=== PATIENT | female | born 1985 | race African-American/Black ===

== ENCOUNTER 2018-03-19 07:43 | Emergency (ER) | payer MEDICAID, OTHER ==
[~2018-03-19] VITALS: Ht 172.7 cm; Wt 74.8 kg
[2018-03-19 08:15] VITALS: BP 131/97
== END 2018-03-19 10:39 | disposition home or self-care (01) ==
LOC: ER 07:47
DX: T23.231D Burn of second degree of multiple right fingers (nail), not including thumb, subsequent encounter (principal); F17.210 Nicotine dependence, cigarettes, uncomplicated; X08.8XXD Exposure to other specified smoke, fire and flames, subsequent encounter